=== PATIENT | male | born 1985 | race Two or more races ===

== ENCOUNTER 2024-12-20 18:54 | Emergency (ER) | payer OTHER ==
[~2024-12-20] VITALS: Ht 180.3 cm; Wt 86.2 kg
[2024-12-20] MEDS ORDERED: LASIX20 MG PO (19:22)
[2024-12-20] MEDS ORDERED: RIVAROXABAN 20 MG TABLET PO STA (19:38)
[2024-12-20] MEDS ORDERED: TRAMADOL HCL 50 MG TABLET PO STA (19:39)
[2024-12-20 21:06] LABS: BASO % 0.7 % (0.1-1.2); EOS # 0.32 (0.04-0.54); EOS % 3.5 % (0.7-7.0); LYMPH # 2.14 (1.18-3.74); LYMPH % 23.5 % (19.3-53.1); MEAN PLATELET VOLUME 9.70 fl (9.4-12.4); MONO # 0.69 (0.24-0.82); MONO % 7.6 % (4.7-12.5); NEUT # 5.88 (1.56-6.13); NEUT % 64.5 % (34.0-71.1); RED CELL DISTRIBUTION WIDTH 12.6 % (11.6-14.4)
[2024-12-20 21:09] LABS: ERYTHROCYTE SEDIMENTATION RATE 40 mm/hr (0-15)
[2024-12-20 21:17] LABS: ALT/SGPT 34.0 U/L (12-78); AST/SGOT 35.0 U/L (15-37); BILIRUBIN TOTAL 0.33 mg/dL (0.3-1.2); BUN CREA RATIO 21.0 (7.0-25.0); CREATININE SERUM 0.72 mg/dL (0.70-1.30); GFR 120.3; GLOBULINA 3.6 G/DL (2.4-3.5); GLUCOSE FASTING 85.0 mg/dL (65-100); INR 1.05; OSMOLALITY SERUM 283.0 MOSM/KG (275-295)
[2024-12-20 21:38] LABS: URINE APPEARANCE Clear; URINE BILIRRUBIN Negative (NEGATIVE); URINE BLOOD Negative; URINE COLOR Yellow; URINE GLUCOSE Negative (NEGATIVE); URINE KETONE Negative (NEGATIVE); URINE LEUKOCYTE Negative; URINE NITRATE Negative; URINE PROTEIN Negative (NEGATIVE); URINE UROBILINOGEN 0.2 E.U./dl
[2024-12-20 21:45] LABS: URINE BACTERIA 0 uL (0.0-1933); URINE CAST 0.00 uL (0.0-1.40); URINE EPITHELIAL CELLS 0.0 uL (0.0-38.8); URINE RBC 0.0 uL (0.0-20.8); URINE WBC 0.6 uL (0.0-23.2)
[2024-12-21] MEDS ORDERED: CEFTRIAXONE SODIUM 1,000 MG VIAL IV STA (05:03)
[2024-12-21] MEDS ORDERED: TRAMADOL HCL 50 MG TABLET PO STA (05:03)
[2024-12-21 07:47] LABS: BASO % 0.7 % (0.1-1.2); EOS # 0.38 (0.04-0.54); EOS % 5.1 % (0.7-7.0); LYMPH # 1.97 (1.18-3.74); LYMPH % 26.5 % (19.3-53.1); MEAN PLATELET VOLUME 9.60 fl (9.4-12.4); MONO # 0.52 (0.24-0.82); MONO % 7.0 % (4.7-12.5); NEUT # 4.50 (1.56-6.13); NEUT % 60.6 % (34.0-71.1); RED CELL DISTRIBUTION WIDTH 12.6 % (11.6-14.4)
== END 2024-12-21 10:31 | disposition home or self-care (01) ==
LOC: ER 18:54
PROVIDERS: General Practice
DX: R60.0 Localized edema (principal)